=== PATIENT | female | born 1965 | race Caucasian/White ===

== ENCOUNTER 2016-12-19 15:32 | Emergency (ER) | payer MEDICAID ==
[~2016-12-19] VITALS: Ht 160 cm; Wt 81.6 kg
[~2016-12-19 15:32] MED LIST: CARI250T PO; DIAZ2TAB; ESCI5TAB; HTN MED; HYDR1TAB
--- NOTE | 2016-12-19 15:50 | NUR ---
PATIENT PRESENTS TO ER C/O LEFT ARM PAIN. PATIENT SENT BY PMD TO R/O BLOOD CLOT. PATIENT IS A/OX 4. BREATHING EVEN AND UNLABORED. NO SOB. VITALS STABLE. SAFETY AND COMFORT MEASURES IN PLACE. AWAITING MD ORDERS.
[2016-12-19] MEDS ORDERED: HYDROCODONE/APAP 10/325MG 1 EA TABLET PO ONE (16:00)
[2016-12-19] MEDS ORDERED: ONDANSETRON 4 MG TAB.RAPDIS SL ONE (16:00)
--- NOTE | 2016-12-19 16:17 | NUR ---
US TECH AT BEDSIDE.
[2016-12-19] MEDS ORDERED: HYDROCODONE/APAP 10/325MG 1 EA TABLET ONE (16:20)
[2016-12-19] MEDS ORDERED: ONDANSETRON 4 MG TAB.RAPDIS ONE (16:20)
[2016-12-19 17:21] VITALS: BP 162/98
--- NOTE | 2016-12-19 17:26 | NUR ---
Patient discharged to home in stable condition. Written and verbal after care instructions given. Patient verbalizes understanding of instruction.
== END 2016-12-19 17:26 | disposition home or self-care (01) ==
LOC: ER 15:34
DX: M25.522 Pain in left elbow (principal); F17.200 Nicotine dependence, unspecified, uncomplicated
CPT/HCPCS: 93971; 99284; A4606; Q0162; Z7610

== ENCOUNTER 2018-04-13 23:37 | Emergency (ER) | payer MEDICAID, OTHER ==
[~2018-04-13] VITALS: Ht 160 cm; Wt 77.1 kg
[2018-04-13 23:40] VITALS: BP 177/99
--- NOTE | 2018-04-14 02:33 | NUR ---
PT CALLED TO RM, NO ANSWER.
--- NOTE | 2018-04-14 02:39 | NUR ---
2ND CALL, NO ANSWER.
--- NOTE | 2018-04-14 02:44 | NUR ---
3rd call, no answer. LWBS.
[2018-04-19] MEDS ORDERED: LISI-659 PO (20:47)
[2018-04-19] MEDS ORDERED: HYDR50TA3 PO (20:47)
[2018-04-19] MEDS ORDERED: IBUP-1953 PO (20:47)
[2018-04-19] MEDS ORDERED: BUPR-51 PO (20:47)
[2018-04-19] MEDS ORDERED: AMOX500C2 PO (20:47)
[2018-04-19] MEDS ORDERED: HYDR-3974 PO (20:47)
[2018-04-20] MEDS ORDERED: CLON0.1T PO (08:57)
== END 2018-04-14 02:44 | disposition left against medical advice (07) ==
LOC: ER 23:42
DX: Z53.21 Procedure and treatment not carried out due to patient leaving prior to being seen by health care provider (principal); K08.89 Other specified disorders of teeth and supporting structures; I10 Essential (primary) hypertension; Z87.01 Personal history of pneumonia (recurrent)
CPT/HCPCS: A4606; Z7610

== ENCOUNTER 2018-04-19 16:55 | Inpatient (IN) | END 2018-04-23 10:15 | disposition home or self-care (01) | DRG 241 | DX: K27.4 Chronic or unspecified peptic ulcer, site unspecified, with hemorrhage (principal); E44.1 Mild protein-calorie malnutrition; D62 Acute posthemorrhagic anemia; F41.9 Anxiety disorder, unspecified; G47.00 Insomnia, unspecified; I10 Essential (primary) hypertension; Z79.1 Long term (current) use of non-steroidal anti-inflammatories (NSAID); Z87.11 Personal history of peptic ulcer disease; Z68.34 Body mass index [BMI] 34.0-34.9, adult; E66.9 Obesity, unspecified; J32.9 Chronic sinusitis, unspecified; G43.909 Migraine, unspecified, not intractable, without status migrainosus ==

== ENCOUNTER 2018-04-24 16:44 | Emergency (ER) | payer OTHER ==
[~2018-04-24] VITALS: Ht 165.1 cm; Wt 91.6 kg
[~2018-04-24 16:44] MED LIST changes: +BUPR-51 PO; -CARI250T PO; +CLON0.1T PO; -DIAZ2TAB; -ESCI5TAB; -HTN MED; +HYDR-3974 PO; -HYDR1TAB; +HYDR50TA3 PO; +LISI-659 PO
--- NOTE | 2018-04-24 17:15 | NUR ---
PT BB SON: C/O HEADACHES SINCE LAST NIGHT, PT IS AAOX4, V/S STABLE, NOT IN RESPIRATORY DISTRESS, KEPT RESTED AND COMFORTABLE.
--- NOTE | 2018-04-24 17:26 | NUR ---
LABS DRAWNED AND SENT TO LAB. AWAITING RESULT.
[2018-04-24] MEDS ORDERED: IV NS 0.9% 250 ML BAG IV ONE (17:30)
[2018-04-24] MEDS ORDERED: IV NS 0.9% 1,000 ML BAG IV ONE (17:30)
[2018-04-24] MEDS ORDERED: HYDROMORPHONE INJ 2 MG/ML DISP.SYRIN IV ONE (17:30)
[2018-04-24] MEDS ORDERED: METOCLOPRAMIDE HCL 10 MG/2 ML VIAL IV ONE (17:30)
[2018-04-24] MEDS ORDERED: diphenhydrAMINE HCL 50 MG/ML VIAL IV ONE (17:30)
[2018-04-24] MEDS ORDERED: diphenhydrAMINE HCL 50 MG/ML VIAL ONE (17:40)
[2018-04-24] MEDS ORDERED: HYDROMORPHONE 1 MG/1 ML DISP.SYRIN ONE (17:40)
[2018-04-24] MEDS ORDERED: METOCLOPRAMIDE HCL 10 MG/2 ML VIAL ONE (17:40)
[2018-04-24 17:42] LABS: BASOPHILS # (AUTO) 0.1 /CMM (0.0-0.2); BASOPHILS % (AUTO) 1.1 % (0.0-2.0); EOSINOPHILS % (AUTO) 4.6 % (0.0-6.0); HEMATOCRIT 27 % (33-45); HEMOGLOBIN 8.8 g/dL (11.5-14.8); LYMPHOCYTES # (AUTO) 2.8 /CMM (0.8-4.8); LYMPHOCYTES % (AUTO) 41.9 % (20.0-44.0); MEAN CORPUSCULAR HGB CONC 33 g/dl (31.0-36.0); MEAN CORPUSCULAR VOLUME 85 fL (82-100); MONOCYTES # (AUTO) 0.4 /CMM (0.1-1.30); MONOCYTES % (AUTO) 6.5 % (2.0-12.0); NEUTROPHILS # (AUTO) 3.1 /CMM (1.8-8.9); NEUTROPHILS % (AUTO) 45.9 % (43.0-81.0); PLATELET COUNT (AUTO) 293 /CMM (150-450); RED BLOOD CELL COUNT(AUTO) 3.15 MIL/uL (4.0-5.2); WHITE BLOOD COUNT (AUTO) 6.7 K/uL (4.3-11.0)
[2018-04-24 17:51] LABS: CALCIUM, SERUM 8.3 mg/dL (8.5-10.1); CREATININE 0.8 mg/dL (0.6-1.3); POTASSIUM 3.5 mmol/L (3.5-5.1)
--- NOTE | 2018-04-24 19:44 | NUR ---
IV removed. Catheter intact and site benign. Pressure and 4x4 applied to site. No bleeding noted. Patient discharged to home in stable condition. Written and verbal after care instructions given. Patient verbalizes understanding of instruction.
[2018-04-24 19:46] VITALS: BP 129/71
== END 2018-04-24 19:50 | disposition home or self-care (01) ==
LOC: ER 16:51
DX: R51 Headache (principal); K59.00 Constipation, unspecified; D64.9 Anemia, unspecified; I10 Essential (primary) hypertension; F17.200 Nicotine dependence, unspecified, uncomplicated; Z87.11 Personal history of peptic ulcer disease; Z79.899 Other long term (current) drug therapy
CPT/HCPCS: 36415; 80048; 85025; 96374; 96375; 99283; A4606; J1170; J1200; J2765; J7030; J7050; Z7610

== ENCOUNTER 2018-04-30 11:10 | Emergency (ER) | payer OTHER ==
[~2018-04-30] VITALS: Ht 165.1 cm; Wt 81.6 kg
--- NOTE | 2018-04-30 11:10 | NUR ---
BIB FAMILY W C/O HEADACHE ON AND OFF x 1 MONTH, "[facility] NOT WORKING FOR ME", TO ER BED 10, HOOKED TO MONITOR, AWAITING MD WOODWARD.
--- NOTE | 2018-04-30 11:29 | NUR ---
DR HYMAN AT BEDSIDE
[2018-04-30] MEDS ORDERED: ONDANSETRON HCL/PF - ER 4 MG/2 ML VIAL IV ONE (12:00)
[2018-04-30] MEDS ORDERED: ACETAMINOPHEN 325 MG TABLET PO ONE (12:00)
[2018-04-30] MEDS ORDERED: LORAZEPAM INJ 2 MG/ML VIAL IV ONE (12:00)
[2018-04-30] MEDS ORDERED: IV NS 0.9% 1,000 ML BAG IV ONE (12:00)
[2018-04-30] MEDS ORDERED: ONDANSETRON HCL/PF 4 MG/2 ML VIAL ONE (12:13)
[2018-04-30] MEDS ORDERED: ACETAMINOPHEN 325 MG TABLET ONE (12:13)
[2018-04-30] MEDS ORDERED: LORAZEPAM INJ 2 MG/ML VIAL ONE (12:14)
[2018-04-30] MEDS ORDERED: HYDROMORPHONE INJ 2 MG/ML DISP.SYRIN ONE (12:41)
[2018-04-30] MEDS ORDERED: HYDROMORPHONE INJ 0.5 MG/0.5 ML SYRINGE IV ONE (13:00)
[2018-04-30] MEDS ORDERED: DEXAMETHASONE SOD PHOSPHATE 4 MG/ML VIAL ONE (13:59)
[2018-04-30] MEDS ORDERED: DEXAMETHASONE SOD PHOSPHATE 4 MG/ML VIAL IV ONE (14:00)
--- NOTE | 2018-04-30 14:30 | NUR ---
IV removed. Catheter intact and site benign. Pressure and 4x4 applied to site. No bleeding noted.Patient discharged to home in stable condition. Written and verbal after care instructions given. Patient verbalizes understanding of instruction.
[2018-04-30 14:37] VITALS: BP 130/82
== END 2018-04-30 14:38 | disposition home or self-care (01) ==
LOC: ER 11:12
DX: R51 Headache (principal); D64.9 Anemia, unspecified; I10 Essential (primary) hypertension; G47.00 Insomnia, unspecified; F17.200 Nicotine dependence, unspecified, uncomplicated; Z87.11 Personal history of peptic ulcer disease; Z79.899 Other long term (current) drug therapy
CPT/HCPCS: 36415; 85652; 96374; 96375; 99283; A4606; J1100; J1170; J2060; J2405; J7030; Z7610

== ENCOUNTER 2018-05-10 18:25 | Emergency (ER) | payer OTHER ==
[~2018-05-10] VITALS: Ht 162.6 cm; Wt 79.4 kg
--- NOTE | 2018-05-10 19:50 | NUR ---
Pt brought in by children d/t severe headache, 10/10 on scale, which has been going on for a month. Pt is A, o/4, ambulates without assistance, on RA, appears very anxious, crying. Pt shows no neuro deficits, seen by Dr. Bar at .
[2018-05-10] MEDS ORDERED: diphenhydrAMINE HCL 50 MG/ML VIAL IV ONE (20:30)
[2018-05-10] MEDS ORDERED: PROCHLORPERAZINE EDISYLATE 10 MG/2 ML VIAL IVP ONE (20:30)
[2018-05-10] MEDS ORDERED: KETOROLAC TROMETHAMINE INJ 30 MG/ML VIAL IV ONE (20:30)
[2018-05-10] MEDS ORDERED: IV NS 0.9% 1,000 ML BAG IV ONE (20:30)
[2018-05-10] MEDS ORDERED: DEXAMETHASONE SOD PHOSPHATE 10 MG/ML VIAL IV ONE (20:30)
[2018-05-10] MEDS ORDERED: DEXAMETHASONE SOD PHOSPHATE 10 MG/ML VIAL ONE (20:37)
[2018-05-10] MEDS ORDERED: diphenhydrAMINE HCL 50 MG/ML VIAL ONE (20:37)
[2018-05-10] MEDS ORDERED: PROCHLORPERAZINE EDISYLATE 10 MG/2 ML VIAL ONE (20:38)
[2018-05-10] MEDS ORDERED: KETOROLAC TROMETHAMINE 15 MG/ML VIAL ONE (20:38)
--- NOTE | 2018-05-10 21:20 | NUR ---
Pt sleeping at this time, pain relief noted after medications were administered.
[2018-05-10] MEDS ORDERED: VALPROATE 500 MG in IV NS 0.9% 100 ML IV STA (22:14)
--- NOTE | 2018-05-10 22:14 | NUR ---
ADDENDUM: Intravenous End Time Documentation: Valproate 500 mg IVPB : start time: 2213 pm; end time: 2313 : IV site: PIV LAC# 20 Port #1
--- NOTE | 2018-05-10 22:45 | NUR ---
Called [employer] for [facility], awaiting delivery.
[2018-05-10] MEDS ORDERED: VALPROATE 500 MG/5 ML VIAL IV ONE (23:04)
--- NOTE | 2018-05-10 23:40 | NUR ---
Pt asleep but arousable, states her headache has subsided. awaiting DC
[2018-05-10 23:46] VITALS: BP 127/86
--- NOTE | 2018-05-10 23:47 | NUR ---
Patient discharged to home in stable condition. Written and verbal after care instructions given. Patient verbalizes understanding of instruction.IV removed. Catheter intact and site benign. Pressure and 4x4 applied to site. No bleeding noted. Pt ambulatory with a steady gait
== END 2018-05-10 23:47 | disposition home or self-care (01) ==
LOC: ER 18:29
DX: R51 Headache (principal); F43.9 Reaction to severe stress, unspecified; F41.9 Anxiety disorder, unspecified; I10 Essential (primary) hypertension; F17.200 Nicotine dependence, unspecified, uncomplicated; Z87.19 Personal history of other diseases of the digestive system; Z79.899 Other long term (current) drug therapy
CPT/HCPCS: 96365; 96375; 99283; A4606; J0780; J1100; J1200; J1885; J3490 ×2; J7030 ×2; Z7610

== ENCOUNTER 2018-06-12 19:34 | Emergency (ER) | payer OTHER ==
[~2018-06-12] VITALS: Ht 165.1 cm; Wt 79.4 kg
[2018-06-12 20:00] VITALS: BP 166/106
== END 2018-06-12 20:20 | disposition home or self-care (01) ==
LOC: ER 19:38
DX: R59.1 Generalized enlarged lymph nodes (principal); G43.909 Migraine, unspecified, not intractable, without status migrainosus; I10 Essential (primary) hypertension; F17.200 Nicotine dependence, unspecified, uncomplicated; Z79.899 Other long term (current) drug therapy
CPT/HCPCS: 99283; A4606; A6403

== ENCOUNTER 2019-06-06 01:03 | Emergency (ER) | payer OTHER ==
[~2019-06-06] VITALS: Ht 165.1 cm; Wt 77.1 kg
--- NOTE | 2019-06-06 01:30 | NUR ---
C/O COUGH AND CONGESTION X2 DAYS. BACK PAIN WHEN COUGHING, HEADACHE
--- NOTE | 2019-06-06 01:44 | NUR ---
CALLED RT FOR BREATHING TX
[2019-06-06] MEDS ORDERED: MORPHINE SULFATE INJ 4 MG/ML DISP.SYRIN ONE (01:46)
[2019-06-06] MEDS ORDERED: IPRATROPIUM NEB FS 0.5 MG/2.5 ML AMPUL.NEB ONE (01:53)
[2019-06-06] MEDS ORDERED: ALBUTEROL FS 2.5 MG/3 ML VIAL.NEB ONE (01:53)
--- NOTE | 2019-06-06 01:58 | NUR ---
RECDEIVING BREATHING TX
[2019-06-06] MEDS ORDERED: IPRATROPIUM NEB FS 0.5 MG/2.5 ML AMPUL.NEB NEB ONE (02:00)
[2019-06-06] MEDS ORDERED: ALBUTEROL FS 2.5 MG/3 ML VIAL.NEB NEB ONE (02:00)
[2019-06-06] MEDS ORDERED: MORPHINE SULFATE INJ 2 MG/ML DISP.SYRIN IM ONE (02:00)
[2019-06-06] MEDS ORDERED: LORAZEPAM INJ 2 MG/ML VIAL ONE (02:32)
--- NOTE | 2019-06-06 02:54 | NUR ---
Patient discharged to home in stable condition. Rx and Written and verbal after care instructions given. Patient verbalizes understanding of instruction.
[2019-06-06 02:55] VITALS: BP 155/87
[2019-06-06] MEDS ORDERED: LORAZEPAM INJ 2 MG/ML VIAL IM ONE (03:00)
== END 2019-06-06 02:56 | disposition home or self-care (01) ==
LOC: ER 01:13
DX: J40 Bronchitis, not specified as acute or chronic (principal); G43.909 Migraine, unspecified, not intractable, without status migrainosus; I10 Essential (primary) hypertension; F17.200 Nicotine dependence, unspecified, uncomplicated; Z79.899 Other long term (current) drug therapy
CPT/HCPCS: 71045; 94640; 96372 ×2; 99285; J2060; J2270

== ENCOUNTER 2020-04-07 21:59 | Emergency (ER) | payer OTHER ==
[~2020-04-07] VITALS: Ht 160 cm; Wt 72.6 kg
[2020-04-07 22:40] VITALS: BP 138/100
[2020-04-07] MEDS ORDERED: MORPHINE SULFATE INJ 4 MG/ML DISP.SYRIN ONE (22:47)
[2020-04-07] MEDS ORDERED: MORPHINE SULFATE INJ 4 MG/ML DISP.SYRIN IM ONE (23:00)
== END 2020-04-07 22:54 | disposition home or self-care (01) ==
LOC: ER 22:02
DX: G89.18 Other acute postprocedural pain (principal); G43.909 Migraine, unspecified, not intractable, without status migrainosus; I10 Essential (primary) hypertension; Z79.899 Other long term (current) drug therapy; Z02.89 Encounter for other administrative examinations
CPT/HCPCS: 96372; 99283; J2270

== ENCOUNTER 2021-03-10 11:43 | Emergency (ER) | payer OTHER ==
[~2021-03-10] VITALS: Ht 162.6 cm; Wt 72.6 kg
[~2021-03-10 11:43] MED LIST changes: -BUPR-51 PO; +BUPR-53 PO; -HYDR50TA3 PO; +HYDR50TA4 PO
--- NOTE | 2021-03-10 12:00 | NUR ---
patient came in to the er c/o worsening back pain since last night from heavy lifting. On room air, connected to the monitor and pulse ox. kept comfortable, will continue to monitor accordingly.
[2021-03-10] MEDS ORDERED: ACETAMINOPHEN 325 MG TABLET PO ONE (12:30)
[2021-03-10] MEDS ORDERED: LORAZEPAM INJ 2 MG/ML VIAL IV ONE (12:30)
[2021-03-10] MEDS ORDERED: KETOROLAC TROMETHAMINE INJ 30 MG/ML VIAL IV ONE (12:30)
[2021-03-10] MEDS ORDERED: MORPHINE SULFATE INJ 2 MG/ML DISP.SYRIN IV ONE (12:30)
[2021-03-10] MEDS ORDERED: IV NS 0.9% 1,000 ML IV ONE (12:30)
[2021-03-10] MEDS ORDERED: ACETAMINOPHEN 325 MG TABLET ONE (12:39)
[2021-03-10] MEDS ORDERED: KETOROLAC TROMETHAMINE 15 MG/ML VIAL ONE (12:39)
[2021-03-10] MEDS ORDERED: MORPHINE SULFATE INJ 4 MG/ML DISP.SYRIN ONE (12:39)
[2021-03-10] MEDS ORDERED: LORAZEPAM INJ 2 MG/ML VIAL ONE (12:40)
--- NOTE | 2021-03-10 13:08 | NUR ---
PT SLEEPING IN BED, IV FLUIDS RUNNING.
[2021-03-10] MEDS ORDERED: HYDROMORPHONE 1 MG/1 ML DISP.SYRIN ONE (14:51)
[2021-03-10] MEDS ORDERED: HYDR-4303 PO (14:58)
[2021-03-10] MEDS ORDERED: CYCL5TAB PO (14:58)
[2021-03-10] MEDS ORDERED: IBUP-1955 PO (14:58)
[2021-03-10] MEDS ORDERED: HYDROMORPHONE 1 MG/1 ML DISP.SYRIN IV ONE (15:00)
[2021-03-10 15:53] VITALS: BP 128/88
--- NOTE | 2021-03-10 15:53 | NUR ---
Patient discharged to home in stable condition. Written and verbal after care instructions given. Patient verbalizes understanding of instruction.IV removed. Catheter intact and site benign. Pressure and 4x4 applied to site. No bleeding noted.
== END 2021-03-10 15:53 | disposition home or self-care (01) ==
LOC: ER 12:30
DX: M54.50 Low back pain, unspecified (principal); M62.830 Muscle spasm of back; I10 Essential (primary) hypertension; G43.909 Migraine, unspecified, not intractable, without status migrainosus; Z79.899 Other long term (current) drug therapy
CPT/HCPCS: 96361; 96374; 96375; 99285; J1170; J1885; J2060; J2270; J7030